=== PATIENT | male | born 1985 | race Two or more races ===

== ENCOUNTER 2018-03-13 06:37 | Emergency (ER) | payer OTHER ==
[~2018-03-13] VITALS: Ht 165.1 cm; Wt 90.3 kg
[2018-03-13 06:43] VITALS: Ht 165.1 cm; Wt 90.3 kg
[2018-03-13 07:41] LABS: BASOPHIL % 0.2 % (0-2); PLATELET COUNT 267 x10^3mcL (130-400); RED CELL DISTRIBUTION WIDTH 12.1 % (11.5-14.5)
[2018-03-13 07:45] LABS: CARBON DIOXIDE 25.2 mmol/L (21-32); CHLORIDE SERUM 101 mmol/L (98-107); CREATININE SERUM 0.9 mg/dL (0.7-1.3); GFR1 > 60 mL/min; GLUCOSE SERUM 203 mg/dL (74-106); POTASSIUM SERUM 4.2 mmol/L (3.5-5.1); SODIUM SERUM 137 mmol/L (136-145)
[2018-03-13 07:49] LABS: ALBUMIN 3.8 g/dL (3.4-5.0); ALKALINE PHOSPHATASE 134 U/L (46-116); ALT/SGPT 78 U/L (16-63); AST/SGOT 25 U/L (15-37); BILIRUBIN TOTAL 0.35 mg/dL (0.20-1.00); LIPASE 162 IU/L (73-393)
[2018-03-13 07:50] LABS: TOTAL PROTEIN, SERUM 8.4 g/dL (6.4-8.2)
[2018-03-13 10:26] VITALS: BP 134/60
== END 2018-03-13 10:26 | disposition home or self-care (01) ==
LOC: ED 06:37
PROVIDERS: Emergency Medicine
DX: T78.1XXA Other adverse food reactions, not elsewhere classified, initial encounter (principal); K52.9 Noninfective gastroenteritis and colitis, unspecified; E11.9 Type 2 diabetes mellitus without complications; X58.XXXA Exposure to other specified factors, initial encounter
CPT/HCPCS: J1200; J2405; J2930; J3490; J7030